=== PATIENT | female | born 1955 | race Caucasian/White ===

== ENCOUNTER → 2019-09-18 07:35 | Outpatient (CLI) | payer MEDICARE, OTHER, SELFPAY ==
--- NOTE | 2019-09-18 | DI.NM.S_ITS ---
PROCEDURE: NM ALEXI PERF SPECT REST & STR Rest and exercise myocardial perfusion SPECT with gated imaging and ejection fraction RADIOPHARMACEUTICAL: 25.4 mCi Tc-99m sestamibi IV at rest and 24.6 mCi Tc-99m sestamibi IV at peak exercise. A 2 day-protocol was performed. INDICATIONS: Essential (primary) hypertension, exertional dyspnea TECHNIQUE: Radiopharmaceutical was injected at peak stress test, and also at rest. SPECT images were obtained. SPECT myocardial perfusion images were displayed in short axis, horizontal long axis, and vertical long axis views. Gated images were reviewed using [employer] software. COMPARISON: None. CARDIAC STRESS: A standard Joseluis treadmill exercise tolerance test was performed by the patient under the supervision of an attending staff. The patient exercised for 5 minutes and 44 seconds; functional aerobic impairment (DUNCAN) is +10 %. Hemodynamic data: There is hypertensive blood pressure and normal heart rate response to exercise stress. The blood pressure increased early after starting the exercise and peaked at 198/100 mmHg from baseline of 132/90 mmHg; Patient achieved 108% of maximum predicted heart rate at peak exercise. Symptoms: Patient denied chest pain during exercise but had shortness of breath with exercise. EKG: The EKG at peak exercise is uninterpretable due to significant baseline artifact. The tracing from early recovery period shows less than [address] depression in anterolateral leads. No diagnostic EKG changes of ischemia; no ectopy. FINDINGS: Raw data: There is good myocardial labeling by radiotracer. No significant motion artifacts. Dugb-[id number] ratio is 0.21 (normal is less than 0.38 for sestamibi tracer, and less than 0.50 for thallium tracer). Left ventricle function: Gated images demonstrate normal left ventricle wall thickening. No segmental wall motion abnormality. No transient ischemic dilation; TID is 0.57(normal less than 1.3). The left ventricle resting end-diastolic volume is 53 mL. Left ventricle stress ejection fraction is >75% ; normal values are above 45%. Myocardial perfusion: There is a very small apical perfusion defect at rest which is normal on stress imaging with has normal wall thickening, consistent with apical thinning. Otherwise normal distribution of activity in the left ventricular myocardium. No other fixed or reversible perfusion defects. IMPRESSION: Normal myocardial perfusion study. Severe hypertensive response to exercise. Small LV cavity The EKG portion at peak exercise was not interpretable as above. Dictated by: Justin Ghosh M.D. on 09/21/2019 at 18:15 Approved by: Justin Ghosh M.D. on 09/21/2019 at 18:23
--- NOTE | 2019-09-18 | DI.ECHO.S_ITS ---
[facility]---------+ [facility] +---------+ : : [address] : [place] : : : : [id number] : : : : Phone: [phone]+ Echocardiogram Report + + :Name: CECE CROWLEY Study Date: 09/18/2019 Height: 62 in : :[facility] Weight: 178 lb : : Gender: Female BSA: 1.8 m2 : :: 1955 Age: 64 yrs BP: 136/80 mmHg: :Reason For Study: Hypertension : : Performed By: Halima Drew : :Referring: DENISE RUIZ : + + Interpretation Summary There is mild-moderate concentric left ventricular hypertrophy. The ejection fraction is estimated to be 70-75%. There is no significant valvular heart disease. Procedure: A two-dimensional transthoracic echocardiogram with color flow and Doppler was performed. The study quality was technically adequate. There is no prior echocardiogram noted for this patient. The patient was in normal sinus rhythm during the exam. Left Ventricle: The left ventricle is normal in size. There is mild-moderate concentric left ventricular hypertrophy. The ejection fraction is estimated to be 70-75%. Left ventricular wall motion is normal. Right Ventricle: The right ventricle grossly appears normal in size with probable normal systolic function. Atria: The left atrial size is normal. Right atrial size is normal. The interatrial septum is intact with no evidence for an atrial septal defect. Mitral Valve: The mitral valve leaflets appear mildly thickened, but open well. There is mild to moderate mitral annular calcification. There is no mitral regurgitation noted. Aortic Valve: The aortic valve opens well. No aortic regurgitation is present. Tricuspid Valve: The tricuspid valve is normal in structure and function. There is trace tricuspid regurgitation. The right ventricular systolic pressure is estimated to be at least 22 mmHg based on an estimated right atrial pressure of 3 mm Hg. Pulmonic Valve: The pulmonic valve is normal in structure and function. There is no pulmonic valvular regurgitation. Great Vessels: The aortic root is normal size. The ascending aorta is at the upper limits of normal in size. The aortic arch is at the upper limits of normal in size. The IVC is of normal diameter and collapses greater than 50% with a sniff. This suggests a low right atrial pressure of 3 mm Hg. Pericardium/ Pleura There is no pericardial effusion. There is no pleural effusion. MMode/2D Measurements & Calculations LVIDd: 3.7 cm Ao root diam: 3.5 cm LVIDs: 2.1 cm Aortic Jxn: 2.7 cm FS: 44.3 % asc Aorta Diam: 3.6 cm EPSS: 0.88 cm Ao Arch Diam (Prox Trans): 3.2 cm IVSd: 1.4 cm LVPWd: 1.1 cm LV paz. diameter/BSA (cm/m^2): 2.0 LV sys. diameter/BSA (cm/m^2): 1.1 LA dimension: 3.6 cm RA long axis: 4.4 cm LA A2 area: 15.3 cm2 RA area: 12.4 cm2 LA A4 area: 18.8 cm2 RA vol: 29.8 ml LA length (vol): 4.9 cm RA : 16.4 ml/m2 LA vol: 49.9 ml IVC diam: 1.8 cm LA vol index: 27.4 ml/m2 RVDd major: 4.9 cm RVD1 (basal): 2.8 cm RVD2 (mid): 2.6 cm Doppler Measurements & Calculations Ao V2 max: 180.2 cm/sec MV E max mann: 69.9 cm/sec Ao V2 mean: 119.6 cm/sec MV A max mann: 98.8 cm/sec Ao max P.0 mmHg MV E/A: 0.71 Ao mean P.7 mmHg Med Peak E' Mann: 5.3 cm/sec Ao V2 VTI: 32.5 cm E/E' med: 13.3 Lat Peak E' Mann: 7.2 cm/sec E/E' lat: 9.8 E/e' average: 11.5 MV dec time: 0.19 sec MV P1/2t: 55.4 msec TR max mann: 215.7 cm/sec MV P1/2t max mann: 70.2 cm/sec TR max P.6 mmHg MVA(P1/2t): 4.0 cm2 PA V2 max: 80.2 cm/sec PA V2 mean: 57.7 cm/sec PA mean P.5 mmHg PA Accel Time: 0.17 sec Reading Physician:11:[id number] AM
--- NOTE | 2019-09-18 08:48 | P.PCN_ITS ---
Cardiac Stress Test Report Referral & Results Date Patient Seen: 09/18/19 Time Patient Seen: 08:30 Requesting provider: Kalpesh Ruiz Indication: HTN Rest ECG: NSR Procedure Note: Today following both written and verbal informed consent the patient was exercised according to a standard Joseluis protocol patient went for a total of 3 minutes 30 seconds achieving a maximum heart rate of 168 maximum systolic blood pressure of 198. This is approximately 6 METs. Exercise was terminated at this point because of fatigue. Patient was also given Cardiolite through a previously started Hep-Lock IV by the nuclear criticality safety engineer approximately 1 minute prior to the cessation of exercise. Marked dyspnea on exertion. Prominent T-waves in multiple leads that became more exaggerated on exertion. DUNCAN +20% on the sedentary scale. Exaggerated heart rate/BP response to exercise. Impression: Abnormal test. Will await perfusion imaging. Please note: Actual ECG tracings can be found in the PACS system.
== END ==
PROVIDERS: Visit Provider Internal Medicine Cardiovascular Disease
DX: I25.10 Atherosclerotic heart disease of native coronary artery without angina pectoris (principal); I10 Essential (primary) hypertension; R06.09 Other forms of dyspnea; Z91.89 Other specified personal risk factors, not elsewhere classified
CPT/HCPCS: 78452; 93016; 93017; 93018; 93306; A9502